=== PATIENT | male | born 1970 | race Caucasian/White ===

== ENCOUNTER 2024-01-07 08:21 | Outpatient (CLI) | payer BC, SELFPAY ==
--- NOTE | 2024-01-07 08:24 | MR_ITS ---
WS: [id number] MRI LEFT KNEE NONCONTRAST TECHNIQUE: Axial PD, coronal PD fat sat, coronal PD, sagittal PD, and sagittal PD fat-sat images obta ined. CLINICAL INFORMATION: L KNEE DERANGEMENT COMPARISON: None. FINDINGS: Distal quadriceps and patella tendons are intact. Hypertrophic patella. ACL and PCL are intact. Horiz ontal tear involving the posterior horn medial meniscus extending to the peripheral articular surface and meniscal root. Mild thinning of the medial meniscus. Lateral meniscus appears intact. Normal med ial and lateral collateral ligaments. Normal popliteus. Mild chondromalacia patella. Medial and later al patellar retinaculum appear intact. Small suprapatellar effusion. Popliteal fossa. IMPRESSION: 1. ACL and PCL are intact. 2. Horizontal tear involving the posterior horn medial meniscus extending to the meniscal root and a rticular surface. 3. Mild to moderate narrowing of the medial and lateral joint compartments with grade II chondromala ar. 4. Mild chondromalacia patella. Small suprapatellar effusion. Outbridge grading: grade II: blister-like swelling/fraying of articular cartilage extending to surfac e
== END 2024-01-07 08:22 | disposition home or self-care (01) ==
LOC: RAD 08:21
PROVIDERS: PCP Internal Medicine; Visit Provider Internal Medicine
DX: S83.242A Other tear of medial meniscus, current injury, left knee, initial encounter (principal); X58.XXXA Exposure to other specified factors, initial encounter; M23.92 Unspecified internal derangement of left knee; M22.42 Chondromalacia patellae, left knee
CPT/HCPCS: 73721